=== PATIENT | female | born 1965 | race Caucasian/White ===

== ENCOUNTER 2023-07-02 10:39 | Emergency (ER) | payer BC, OTHER, SELFPAY ==
[2023-07-02 10:44] VITALS: BP 112/75
--- NOTE | 2023-07-02 11:27 | ED.GENMED ---
History of Present Illness
General
Chief Complaint: Skin Problem
Source: patient
Time Seen by Provider: 07/02/23 11:01
Travel History
Have you had any contact with someone who has COVID-19?: No
Do you have any symptoms of coronavirus? Fever > 100 degrees, chills, cough, shortness of breath, sore throat, loss of taste or smell, muscle aches, or headache?: No
History of Present Illness
History of Present Illness:
This pt is a 57 yr old feamle who is POD 13 s/p breast reconstruction and panniculectomy. This was first performed in [place]. On Monday, she saw her doctors in [place] and given that the drainage from the panniculectomy incision was less than
30 mL, the drains were removed. Patient was instructed to restart her Plavix at that time which she did on Monday. Since last night, she notes drainage from the right far lateral aspect of her lower abdominal incision. She describes the fluid as
thin and blood-tinged. She denies pain, fever, chills, nausea, vomiting, or other complaints.
Past History
Past History
ED Past Medical History: Cancer (breast), Hypercholesterolemia and Other (seasonal allergies, TIA, RA, asthma)
ED Past Surgical History: Gynecological (R mastectomy), Orthopedic and Other (LE vein stripping)
Social History
Tobacco: Non-smoker
Alcohol: Occasional
Drug: None
Personal:
Living: with family
Phy Exam
Physical Exam
Physical Exam:
GENERAL: Alert , in no apparent distress
EYE: pupils equal and reactive
NECK: Supple, no significant adenopathy.
ENT: o/p clr, mmm.
CARDIAC: Regular rate and rhythm .
LUNGS: Clear breath sounds bilaterally, no acute respiratory distress, no wheezes/rales/rhonchi
ABDOMEN: Soft, without focal tenderness, no r/g, no cvat
NEUROLOGICAL: Alert and oriented, no focal neuro deficits
SKIN: Warm and dry, skin intact. At the lower abd healing incision, R lateral, slow ooze of thin,serosang drainage. No redness/warmth/fluctuance/crepitus/ttp. Breast incisions c/d/i
MUSCULOSKELETAL: No edema, well perfused.
PSYCH: Normal and appropriate interaction.
Course
Orders/Labs/Results
Orders:
Orders
07/02/23 13:42
US Abdomen Limited Urgent
Comment:
Reason For Exam: please only examine R lateral incision, t/c hemato
Vital Signs
Initial and Last Documented VS:
Initial Vital Signs
Temp Pulse Resp BP Pulse Ox
98.1 F 82 17 112/75 99
07/02/23 10:44 07/02/23 10:44 07/02/23 10:44 07/02/23 10:44 07/02/23 10:44
Last Documented Vital Signs
Temp Pulse Resp BP Pulse Ox
98.1 F 82 17 112/75 99
07/02/23 10:44 07/02/23 10:44 07/02/23 10:44 07/02/23 10:44 07/02/23 10:44
*Critical Care Note
Total Time (30-74mins, 75-104mins- exclusive of procedures): Not Applicable
Update Note
Update Note:
Patient presents to the Emergency Department with drainage from incision____
Number and Complexity of Problems Addressed at the Encounter
� Chronic conditions affecting care:
� Acute Exacerbation and/or Progression of Chronic Illness:
� Differential Diagnosis includes: but not limited to seroma, abscess, etc.
Amount and/or Complexity of Data to be Reviewed and Analyzed
� I performed an independent evaluation of and my interpretation is:
EKG:
CT:
Xrays:
Laboratory Studies:
Other: US NO HEMATOMA OR ABSCESS
� Review of other/old records reveals:
� Clinical information was obtained by an independent historian:
� Prescriptions/Medications Considered but not given:
� Further testing considered but not performed:
Risk of Complications and/or Morbidity or Mortality of Patient Management
� Social determinants of health affecting care:
� Discussion with other providers (PCP, Hospitalists, Consultants, etc):
� Escalation of care including admission/observation vs risk of discharge considered: Case discussed with covering surgeon Dr. Arminda Johnson [phone], aware of hx, physical, etc. Given no signs/findings to suggest infx, and US
to r/o hematoma, recommendation is observation at home, continue with binder, avoid heavy lifting/activity...it is expected to heal with time. No other interventions or recommendations. Continue plavix.
D/w pt import of f/u and reasons to rted.
ED Attending Note
-
Portions of this chart may have been created with voice recognition software.� Occasional wrong word or��sound alike� substitutions may have occurred due to the inherent limitations of voice recognition software.
Discharge Plan
Departure
Patient Disposition: Home (Routine Discharge)
Date of Disposition: 07/02/23
Time of Disposition: 15:28
Patient with high blood pressure during this ER visit?: No
Condition: Good
Discharge Problem:
Drainage from surgical wound
Instructions: Surgical Wound (DC)
Prescriptions:
No Action
albuterol sulfate [ProAir HFA] 90 mcg/actuation HFA aerosol inhaler
1 puff inhalation Q4HPRN PRN (Reason: shortness of breath) Qty: 8.5 0RF
acetaminophen [Tylenol] 325 mg Tablet
650 mg PO Q6H PRN (Reason: pain)
alendronate 70 mg Tablet
70 mg PO QWEEK
clopidogrel 75 mg Tablet
75 mg PO DAILY
methotrexate sodium [Methotrexate (Anti-Rheumatic)] 2.5 mg Tablet
2.5 mg PO QWEEK
desloratadine 5 mg Tablet
5 mg PO DAILY
folic acid 1 mg Tablet
1 mg PO DAILY
lovastatin 20 mg Tablet
20 mg PO DAILY
Humira 40 mg/0.8 mL Syringe Kit
40 mg SC Q2W
duloxetine [Cymbalta] 60 mg Capsule,Delayed Release(Dr/Ec)
60 mg PO DAILY
cholecalciferol (vitamin D3) [Vitamin D3] 50 mcg (2,000 unit) Tablet
50 mcg PO DAILY
azelastine-fluticasone [Dymista] 137-50 mcg/spray [place],Non-Aerosol
1 spray INTRANASAL DAILY
krill oil 1,124-563-37-80 mg Capsule
1 cap PO .OCAISIONALLY
Referrals:
Cliff Underwood DO [Family Provider] -
Activity Restrictions/Additional Instructions:
PLEASE AVOID HEAVY LIFTING/PHYSICAL ACTIVITY UNTIL FURTHER NOTICE. CONTINUE YOUR PLAVIX. IF YOU DEVELOP INCREASING/NEW/FOUL SMELLING DRAINAGE, FEVER, VOMITING, REDNESS/WARMTH/SWELLING AT WOUND, ABDOMINAL PAIN, OR OTHER WORRISOME SIGNS, GO TO THE
ER IMMEDIATELY!
Interventions
Interventions:
*Risk Screen - Suicide Last Done: 07/02/23 10:45
*General Assessment Last Done: 07/02/23 10:45
*Neglect/Abuse Screening Last Done: 07/02/23 10:45
ED- Fall Risk Assessment Last Done: 07/02/23 12:50
*ED COVID-19 Vaccine History Last Done: 07/02/23 10:45
*Nursing Disposition Last Done: 07/02/23 15:41
ED-Skin Assessment Last Done: 07/02/23 15:41
Discharge Date and Time
Discharge Date/Time: 07/02/23 15:43
== END 2023-07-02 15:43 | disposition home or self-care (01) ==
LOC: EMR 10:39
PROVIDERS: EMERGENCY PHYSICIAN Emergency Medicine; FAMILY PHYSICIAN Family Medicine
DX: T81.31XA Disruption of external operation (surgical) wound, not elsewhere classified, initial encounter (principal); Z79.02 Long term (current) use of antithrombotics/antiplatelets
CPT/HCPCS: 99284; 76705

== ENCOUNTER → 2023-11-03 08:02 | Outpatient (REF) | payer BC, OTHER, SELFPAY | LOC: HWRAD 08:02 | PROVIDERS: ATTENDING PHYSICIAN Family Medicine | DX: Z87.891 Personal history of nicotine dependence (principal) | CPT/HCPCS: 71271 ==

== ENCOUNTER 2024-02-13 04:45 | Emergency (ER) | payer BC, OTHER, SELFPAY ==
[2024-02-13 04:46] VITALS: BP 139/79
--- NOTE | 2024-02-13 05:03 | EDRN ---
site. Pt states that tonight 'pus' came out. Pt unable to get earring out of R ear. Earring is titanium.
--- NOTE | 2024-02-13 05:41 | ED.GENMED ---
History of Present Illness
General
Chief Complaint: Skin Problem
Time Seen by Provider: 02/13/24 05:03
History of Present Illness
History of Present Illness:
58-year-old female presenting to the emergency department for concern of infected piercing to the right ear. 4 days ago patient had a piercing in her right auricle. She has since developed swelling, redness, pain. She has been unable to remove
the piercing herself. Reports that she has seen some drainage. Denies fever or systemic symptoms. Denies additional acute medical complaints
Past History
Past History
ED Past Medical History: Cancer (breast), Hypercholesterolemia and Other (seasonal allergies, TIA, RA, asthma)
ED Past Surgical History: Gynecological (R mastectomy), Orthopedic and Other (LE vein stripping)
Social History
Tobacco: Non-smoker
Alcohol: Occasional
Drug: None
Personal:
Living: with family
Phy Exam
Physical Exam
Physical Exam:
General: Well-appearing, no clinical signs of dehydration, nontoxic and in no acute distress
HEENT: protecting airway, erythema and swelling to the right ear particularly at the right auricle. Retained piercing in the cartilage. No fluctuance. Tenderness to palpation
Neck: appears supple
CV: Normal heart rate
Resp: No accessory muscle use, no increased work of breathing
Abd: Soft and non-distended, no tenderness to palpation, normal bowel sounds
Extremities: No deformities
Neuro: alert, no focal neurologic deficit
: deferred
Rectal: deferred
Psych: Normal affect
Skin: Intact
Course
Orders/Labs/Results
Orders:
Orders
02/13/24 05:34
Cephalexin Monohydrate [Keflex] 500 mg PO NOW STA
Vital Signs
Initial and Last Documented VS:
Initial Vital Signs
Pulse Resp BP Pulse Ox
78 18 139/79 100
02/13/24 04:46 02/13/24 04:46 02/13/24 04:46 02/13/24 04:46
Last Documented Vital Signs
Pulse Resp BP Pulse Ox
78 18 139/79 100
02/13/24 04:46 02/13/24 04:46 02/13/24 04:46 02/13/24 04:46
Procedures
Foreign Body Removal-Ear
Right Auricle:
Tenderness: moderate
Any local drainage: none
Removal of foreign body using: simple forceps
Exam of canal after removal: no inflammation
Additional Information:
1% lidocaine used around piercing to help with removal. 1 cc. No complications.
MDM/Problems Addressed
MDM/Problems Addressed:
58-year-old female presenting for infected piercing to the right ear. Vital signs on arrival are normal.
On exam patient is well-appearing, no acute distress or discomfort. Patient does appear to have cellulitis surrounding a routine piercing. No significant fluctuance or suspicion for abscess. Piercing was removed with forceps, no complications.
Lidocaine used to anesthetize the area. Area was cleaned with alcohol wipe. Bleeding controlled. Given cellulitis, will start patient on Keflex. Otherwise feel stable for discharge. Return precautions discussed and patient verbalized
understanding.
*Critical Care Note
Total Time (30-74mins, 75-104mins- exclusive of procedures): Not Applicable
ED Attending Note
-
Portions of this chart may have been created with voice recognition software.� Occasional wrong word or��sound alike� substitutions may have occurred due to the inherent limitations of voice recognition software.
Discharge Plan
Departure
Patient Disposition: Home (Routine Discharge)
Date of Disposition: 02/13/24
Time of Disposition: 05:35
Patient with high blood pressure during this ER visit?: No
Condition: Good
Discharge Problem:
Cellulitis of auricle of ear
Instructions: Cellulitis (Skin Infection), Adult (DC)
Prescriptions:
New
cephalexin 500 mg capsule
500 mg PO QID 5 Days Qty: 20 0RF
No Action
albuterol sulfate [ProAir HFA] 90 mcg/actuation HFA aerosol inhaler
1 puff inhalation Q4HPRN PRN (Reason: shortness of breath) Qty: 8.5 0RF
acetaminophen [Tylenol] 325 mg Tablet
650 mg PO Q6H PRN (Reason: pain)
alendronate 70 mg Tablet
70 mg PO QWEEK
clopidogrel 75 mg Tablet
75 mg PO DAILY
methotrexate sodium [Methotrexate (Anti-Rheumatic)] 2.5 mg Tablet
2.5 mg PO QWEEK
desloratadine 5 mg Tablet
5 mg PO DAILY
folic acid 1 mg Tablet
1 mg PO DAILY
lovastatin 20 mg Tablet
20 mg PO DAILY
Humira 40 mg/0.8 mL Syringe Kit
40 mg SC Q2W
duloxetine [Cymbalta] 60 mg Capsule,Delayed Release(Dr/Ec)
60 mg PO DAILY
cholecalciferol (vitamin D3) [Vitamin D3] 50 mcg (2,000 unit) Tablet
50 mcg PO DAILY
azelastine-fluticasone [Dymista] 137-50 mcg/spray [place],Non-Aerosol
1 spray INTRANASAL DAILY
krill oil 1,385-376-30-80 mg Capsule
1 cap PO .OCAISIONALLY
Referrals:
Cliff Underwood DO [Family Provider] -
Activity Restrictions/Additional Instructions:
You were seen in the emergency department for your swelling and redness
You were found to have cellulitis your ear. Your earpiece was removed. You were started on an antibiotic. Please take as prescribed.
Please follow-up closely with your primary care physician.
Return to the emergency department for any worsening of your symptoms including increased swelling or redness, or any development of chest pain, difficulty breathing, abdominal pain with persistent vomiting and inability to tolerate food or liquid
by mouth (concern for dehydration), weakness, headache or confusion, fever greater than 100.4, or any additional symptoms that are concerning to you.
Thank you for choosing [facility].
Interventions
Interventions:
*Risk Screen - Suicide Last Done: 02/13/24 04:46
*General Assessment Last Done: 02/13/24 04:46
*Neglect/Abuse Screening Last Done: 02/13/24 04:46
ED- Fall Risk Assessment Last Done: 02/13/24 05:00
*ED COVID-19 Vaccine History Last Done: 02/13/24 04:52
ED-Skin Assessment Last Done: 02/13/24 05:00
Discharge Date and Time
Print Language: URDU
[2024-02-13] MEDS: KEFLEX 500 MG PO (05:54)
[2024-02-13 06:00] VITALS: BP 118/62
== END 2024-02-13 06:00 | disposition home or self-care (01) ==
LOC: EMR 04:45
PROVIDERS: EMERGENCY PHYSICIAN Student in an Organized Health Care Education/Training Program; FAMILY PHYSICIAN Family Medicine
DX: H60.11 Cellulitis of right external ear (principal)
CPT/HCPCS: 99283; 69200

== ENCOUNTER → 2024-08-05 08:44 | Outpatient (REF) | payer BC, OTHER, SELFPAY | LOC: HWRAD 08:44 | PROVIDERS: ATTENDING PHYSICIAN Internal Medicine Rheumatology; FAMILY PHYSICIAN Family Medicine | DX: M81.0 Age-related osteoporosis without current pathological fracture (principal) | CPT/HCPCS: 77080 ==

== ENCOUNTER → 2024-11-20 08:17 | Outpatient (REF) | payer BC, OTHER, SELFPAY | LOC: HWRAD 08:17 | PROVIDERS: ATTENDING PHYSICIAN Family Medicine | DX: Z87.891 Personal history of nicotine dependence (principal) | CPT/HCPCS: 71271 ==

== ENCOUNTER → 2025-03-13 09:56 | Outpatient (REF) | payer BC, OTHER, SELFPAY | LOC: WDC 09:56 | PROVIDERS: ATTENDING PHYSICIAN Family Medicine | DX: N63.20 Unspecified lump in the left breast, unspecified quadrant (principal) | CPT/HCPCS: 76642 ==